=== PATIENT | male | born 1990 | race Two or more races ===

== ENCOUNTER 2017-02-09 03:55 | Emergency (ER) | payer OTHER ==
[~2017-02-09] VITALS: Ht 165.1 cm; Wt 63.5 kg
[2017-02-09] MEDS ORDERED: diphenhydrAMINE HCL 50 MG/ML VIAL IV ONE (04:00)
[2017-02-09] MEDS ORDERED: HALOPERIDOL LACTATE INJ 5 MG/ML VIAL ONE (04:00)
[2017-02-09] MEDS ORDERED: LORAZEPAM INJ 2 MG/ML VIAL ONE (04:00)
[2017-02-09] MEDS ORDERED: IV NS 0.9% 1,000 ML BAG IV ONE (04:00)
[2017-02-09] MEDS ORDERED: HALOPERIDOL LACTATE INJ 5 MG/ML VIAL IV ONE (04:00)
[2017-02-09] MEDS ORDERED: LORAZEPAM INJ 2 MG/ML VIAL IVP ONE (04:00)
[2017-02-09] MEDS ORDERED: diphenhydrAMINE HCL 50 MG/ML VIAL ONE (04:00)
[2017-02-09] MEDS ORDERED: IV NS 0.9% 1,000 ML ONE (04:01)
[2017-02-09] MEDS ORDERED: IV SET PRIMARY 1 EA INFUS.SET MC ONE (04:01)
[2017-02-09 04:24] LABS: BASOPHILS % (AUTO) 0.2 % (0.0-2.0); DIFF TOTAL % 100 %; EOSINOPHILS % (AUTO) 0.1 % (0.0-6.0); HEMATOCRIT 45 % (39-51); HEMOGLOBIN 14.8 g/dL (13.5-17.5); LYMPHOCYTES # (AUTO) 0.9 /CMM (0.8-4.8); LYMPHOCYTES % (AUTO) 9.9 % (20.0-44.0); MEAN CORPUSCULAR HEMOGLOBIN 29 PG (26.0-33.0); MEAN CORPUSCULAR HGB CONC 33 g/dl (31.0-36.0); MEAN CORPUSCULAR VOLUME 88 fL (80-96); MONOCYTES # (AUTO) 0.5 /CMM (0.1-1.30); MONOCYTES % (AUTO) 5.5 % (2.0-12.0); NEUTROPHILS # (AUTO) 7.8 /CMM (1.8-8.9); NEUTROPHILS % (AUTO) 84.3 % (43.0-81.0); PLATELET COUNT (AUTO) 238 /CMM (150-450); RED BLOOD CELL COUNT(AUTO) 5.09 MIL/uL (4.5-6.0); WHITE BLOOD COUNT (AUTO) 9.2 K/uL (4.3-11.0)
[2017-02-09 04:46] LABS: CALCIUM, SERUM 9.4 mg/dL (8.5-10.1); CREATININE 1.1 mg/dL (0.6-1.3); POTASSIUM 3.8 mmol/L (3.5-5.1)
[2017-02-09 04:51] LABS: ALBUMIN 4.2 g/dL (3.4-5.0); BILIRUBIN,DIRECT 0.1 mg/dL (0.0-0.2); BILIRUBIN,TOTAL 0.6 mg/dL (0.2-1.0); INDIRECT BILIRUBIN 0.5 mg/dL (0.0-1.1); TOTAL PROTEIN, SERUM 7.7 g/dL (6.4-8.2)
[2017-02-09 04:52] LABS: SALICYLATE 0.8 mg/dL (2.8-20.0)
[2017-02-09 08:49] LABS: PHENCYCLIDINE SCREEN,URINE NEGATIVE (NEGATIVE)
[2017-02-09 08:51] LABS: CANNABINOID, URINE POSITIVE (NEGATIVE)
[2017-02-09 10:26] VITALS: BP 112/62
== END 2017-02-09 10:27 ==
LOC: ER 03:58
DX: F19.10 Other psychoactive substance abuse, uncomplicated (principal); S40.211A Abrasion of right shoulder, initial encounter; R45.851 Suicidal ideations
CPT/HCPCS: 36415; 80048; 80076; 80305; 80329; 82550; 85025; 93005; 96361; 96374; 96375; 99285; A4606; G0480 ×2; J1200; J1630; J2060; J7030; Z7610; G6039-TC

== ENCOUNTER 2018-04-24 10:42 | Emergency (ER) | payer OTHER ==
[~2018-04-24] VITALS: Ht 167.6 cm; Wt 74.8 kg
--- NOTE | 2018-04-24 10:50 | NUR ---
PT BIB RA AND [employer] WITH A C/O SI. PT STATED THAT HE TRIED TO "JUMP OFF THE ROOF OF [facility], BUT THAT DID NOT WORK". THEN PT STATED THAT HE TRIED TO RUN INTO TRAFFIC. PT IS AA&O X3. PT IS BEING PUT ON A 5150 BY [employer].
--- NOTE | 2018-04-24 11:02 | NUR ---
TAPPER SUPERVISOR IS AT THE BEDSIDE FOR BLOOD DRAW. URINE SAMPLE OBTAINED AND SENT TO LAB.
[2018-04-24 11:14] LABS: APPEARANCE,URINE Clear (CLEAR); BILIRUBIN,URINE Negative (NEGATIVE); BLOOD, URINE Negative Ery/uL (NEGATIVE); COLOR,URINE Yellow (YELLOW); KETONES,URINE Negative (NEGATIVE); LEUKOCYTE ESTERASE ,URINE Negative (NEGATIVE); NITRITE, URINE Negative (NEGATIVE); PROTEIN,URINE Negative (NEGATIVE); UGLUCOSE Negative (NEGATIVE); UROBILINOGEN,URINE 0.2 EU/dL (0.2)
[2018-04-24 11:14] LABS: BASOPHILS # (AUTO) 0.1 /CMM (0.0-0.2); MONOCYTES # (AUTO) 0.3 /CMM (0.1-1.30); WHITE BLOOD COUNT (AUTO) 5.5 K/uL (4.3-11.0)
[2018-04-24 11:16] LABS: BASOPHILS % (AUTO) 2.3 % (0.0-2.0); EOSINOPHILS % (AUTO) 0.3 % (0.0-6.0); HEMATOCRIT 46 % (39-51); HEMOGLOBIN 15.7 g/dL (13.5-17.5); LYMPHOCYTES % (AUTO) 18.5 % (20.0-44.0); MEAN CORPUSCULAR HGB CONC 35 g/dl (31.0-36.0); MEAN CORPUSCULAR VOLUME 87 fL (80-96); MONOCYTES % (AUTO) 4.6 % (2.0-12.0); NEUTROPHILS # (AUTO) 4.1 /CMM (1.8-8.9); NEUTROPHILS % (AUTO) 74.3 % (43.0-81.0); PLATELET COUNT (AUTO) 342 /CMM (150-450); RDW COEFFICIENT OF VARIATION 13.8 (11.5-15.0); RED BLOOD CELL COUNT(AUTO) 5.22 MIL/uL (4.5-6.0)
[2018-04-24 11:23] LABS: CREATININE 0.9 mg/dL (0.6-1.3); POTASSIUM 4.1 mmol/L (3.5-5.1)
[2018-04-24 11:32] LABS: ALBUMIN 3.9 g/dL (3.4-5.0); BILIRUBIN,DIRECT 0.2 mg/dL (0.0-0.2); BILIRUBIN,TOTAL 1.1 mg/dL (0.2-1.0); TOTAL PROTEIN, SERUM 7.8 g/dL (6.4-8.2)
--- NOTE | 2018-04-24 12:00 | NUR ---
CALLED FOR FOOD TRAY
--- NOTE | 2018-04-24 12:20 | NUR ---
FOOD TRAY ARRIVED AND PT IS TOLERATING PO WELL.
--- NOTE | 2018-04-24 13:08 | NUR ---
PT APPEARS TO BE RESTING COMFORTABLY WITH NO S/S OF PAIN OR DISTRESS.
--- NOTE | 2018-04-24 14:30 | NUR ---
PT APPEARS TO BE RESTING COMFORTABLY WITH NO S/S OF PAIN OR DISTRESS.
--- NOTE | 2018-04-24 16:27 | NUR ---
PT APPEARS TO BE RESTING COMFORTABLY WITH NO S/S OF PAIN OR DISTRESS.
--- NOTE | 2018-04-24 16:56 | NUR ---
CALLED FOR DINNER TRAY FOR PT.
--- NOTE | 2018-04-24 18:53 | NUR ---
PT DENIES SI AT THIS TIME. PT APPEARS TO BE RESTING COMFORTABLY. NO S/S OF PAIN OR DISTRESS.
--- NOTE | 2018-04-24 19:10 | NUR ---
REPORT GIVEN TO LORIE TOM FOR OCTAVIANO.
--- NOTE | 2018-04-24 19:17 | NUR ---
REPORT RECV FROM [facility].
--- NOTE | 2018-04-24 19:19 | NUR ---
Patient is resting comfortably in bed, VSS
--- NOTE | 2018-04-24 23:23 | NUR ---
Jaime molina in ED - 04/25/18 at 0044 by SONA PATIENT IS RESTING IN ER BED, NO DISTRESS NOTED, SKIN WARM AND DRY, RESP EVEN AND UNLABORED. WILL CONTINUE TO MONITOR
--- NOTE | 2018-04-25 00:01 | NUR ---
PATIENT IS RESTING IN ER BED, NO DISTRESS NOTED, SKIN WARM AND DRY, RESP EVEN AND UNLABORED. WILL CONTINUE TO MONITOR
--- NOTE | 2018-04-25 02:16 | NUR ---
PATIENT IS RESTING IN ER BED, NO DISTRESS NOTED, SKIN WARM AND DRY, RESP EVEN AND UNLABORED. WILL CONTINUE TO MONITOR
--- NOTE | 2018-04-25 04:51 | NUR ---
SPOKE WITH DAMIEN, INTAKE FROM [facility], PER DAMIEN THEY WILL NOT ACCEPT THE PATIENT. CALLED AIDE CRUZ LCSW, HE STATES HE WILL CALL BACK DAMIEN. AWAITING CALL BACK FROM ART.
--- NOTE | 2018-04-25 05:25 | NUR ---
SPOKE WITH ART, PER ART "SO HOWARD WILL RE ASSESS THE PACKET IN AT 8 AM" PATIENT IS NOT ON A HOLD, PATIENT IS CALM COAPERATIVE. WILL CONTINUE TO MONITOR.
--- NOTE | 2018-04-25 08:00 | NUR ---
ASLEEP,EASILY AROUSABLE, BREAKFAST OFFERED.
--- NOTE | 2018-04-25 09:30 | NUR ---
AMBULATED TO RESTROOM WITH STEADY GAIT
[2018-04-25 10:30] VITALS: BP 118/75
--- NOTE | 2018-04-25 10:52 | NUR ---
CALLED FOR TRANSPORT TO [facility]. ETA 45-60 MINUTES.
--- NOTE | 2018-04-25 11:07 | NUR ---
REPORT GIVEN TO CEZAR MELO FOR OCTAVIANO
--- NOTE | 2018-04-25 11:43 | NUR ---
AMBULANCE ARRIVED, PT NOT FOUND IN BED.
--- NOTE | 2018-04-25 11:45 | NUR ---
Patient eloped from facility. ER MD notified. Patient was last seen by LORIE Osullivan around 1118 went to the restroom.
== END 2018-04-25 12:05 | disposition left against medical advice (07) ==
LOC: ER 10:44
DX: T51.92XA Toxic effect of unspecified alcohol, intentional self-harm, initial encounter (principal); F32.9 Major depressive disorder, single episode, unspecified; F15.10 Other stimulant abuse, uncomplicated; Y92.89 Other specified places as the place of occurrence of the external cause
CPT/HCPCS: 36415; 80048; 80076; 80305; 80329; 81001; 85025; 99284; A4606; G0480 ×3; Z7610; 81000-TC

== ENCOUNTER 2020-03-26 16:22 | Emergency (ER) | payer OTHER ==
[~2020-03-26] VITALS: Ht 167.6 cm; Wt 79.4 kg
--- NOTE | 2020-03-26 16:34 | NUR ---
PT BIBA RA 88 "Drug Abuse last took meth/fentanyl today" PT IS AAOX2, NOT IN RESPIRATORY DISTRESS, HOOKED TO INTERNATIONAL TRADE ANALYST, KEPT RESTED AND COMFORTABLE, WILL CONTINUE TO MONITOR.
--- NOTE | 2020-03-26 16:45 | NUR ---
SEEN AND EXAMINED BY RUSSELL BAEL
--- NOTE | 2020-03-26 16:50 | NUR ---
IV LINE ESTABLISHED BLOOD DRAWN AND SENT TO LAB.
[2020-03-26 16:55] LABS: BASOPHILS % (AUTO) 0.4 % (0.0-2.0); EOSINOPHILS % (AUTO) 0.2 % (0.0-6.0); HEMATOCRIT 44 % (39-51); HEMOGLOBIN 14.7 g/dL (13.5-17.5); LYMPHOCYTES # (AUTO) 1.1 /CMM (0.8-4.8); LYMPHOCYTES % (AUTO) 13.3 % (20.0-44.0); MEAN CORPUSCULAR HGB CONC 33 g/dl (31.0-36.0); MEAN CORPUSCULAR VOLUME 89 fL (80-96); MONOCYTES # (AUTO) 0.3 /CMM (0.1-1.30); MONOCYTES % (AUTO) 3.6 % (2.0-12.0); NEUTROPHILS # (AUTO) 6.7 /CMM (1.8-8.9); NEUTROPHILS % (AUTO) 82.5 % (43.0-81.0); PLATELET COUNT (AUTO) 206 /CMM (150-450); RED BLOOD CELL COUNT(AUTO) 4.96 MIL/uL (4.5-6.0); WHITE BLOOD COUNT (AUTO) 8.2 K/uL (4.3-11.0)
--- NOTE | 2020-03-26 16:58 | NUR ---
URINAL GIVEN, BUT UANBLE TO PROVIDE URINE SPECIMEN THIS TIME.
[2020-03-26] MEDS ORDERED: IV NS 0.9% 1,000 ML BAG IV ONE (17:00)
[2020-03-26] MEDS ORDERED: ONDANSETRON HCL/PF 4 MG/2 ML VIAL IVP ONE (17:00)
[2020-03-26 17:04] LABS: CALCIUM, SERUM 8.5 mg/dL (8.5-10.1)
[2020-03-26 17:11] LABS: ALBUMIN 3.9 g/dL (3.4-5.0); BILIRUBIN,DIRECT 0.1 mg/dL (0.0-0.2); BILIRUBIN,TOTAL 0.3 mg/dL (0.2-1.0); TOTAL PROTEIN, SERUM 7.4 g/dL (6.4-8.2)
[2020-03-26 17:17] LABS: SALICYLATE 2.3 mg/dL (2.8-20.0)
[2020-03-26] MEDS ORDERED: ONDANSETRON HCL/PF 4 MG/2 ML VIAL ONE (17:45)
--- NOTE | 2020-03-26 17:50 | NUR ---
URINE SPECIMEN COLLECTED AND SENT TO LAB.
[2020-03-26 18:43] LABS: APPEARANCE,URINE Clear (CLEAR); BILIRUBIN,URINE Negative (NEGATIVE); BLOOD, URINE Moderate Ery/uL (NEGATIVE); COLOR,URINE Yellow (YELLOW); KETONES,URINE Negative (NEGATIVE); LEUKOCYTE ESTERASE ,URINE Negative (NEGATIVE); NITRITE, URINE Negative (NEGATIVE); PH,URINE 5.5 (5.0-8.0); PROTEIN,URINE Negative (NEGATIVE); UGLUCOSE Negative (NEGATIVE); UROBILINOGEN,URINE 0.2 EU/dL (0.2)
[2020-03-26 18:58] LABS: BACTERIA,URINE Few /HPF (None Seen); MUCUS,URINE Few /LPF (None Seen); SQUAMOUS EPITHELIAL CELL,UR Few /HPF (None Seen); URINE AMORPHOUS URATE Few /HPF (None Seen); WBC,URINE 0-2 /HPF (0-3)
--- NOTE | 2020-03-26 20:40 | NUR ---
PT AWAKE, AAOX4. AMBULATORY WITH STEADY GAIT. PER DR. ECHEVARRIA PT MEDICALLY CLEARED FOR DISCHARGE. Patient discharged to home in stable condition. Written and verbal after care instructions given. Patient verbalizes understanding of instruction.IV removed. Catheter intact and site benign. Pressure and 4x4 applied to site. No bleeding noted.
[2020-03-26 20:49] VITALS: BP 119/75
== END 2020-03-26 20:49 | disposition home or self-care (01) ==
LOC: ER 16:25
DX: F19.10 Other psychoactive substance abuse, uncomplicated (principal); F10.129 Alcohol abuse with intoxication, unspecified; R41.82 Altered mental status, unspecified; Y90.8 Blood alcohol level of 240 mg/100 ml or more
CPT/HCPCS: 36415; 80048; 80076; 80305; 80307; 80329; 81001; 85025; 96361; 96374; 99285; G0480; J2405; J7030; 81000-TC

== ENCOUNTER 2020-09-11 01:29 | Emergency (ER) | payer OTHER ==
[~2020-09-11] VITALS: Ht 170.2 cm; Wt 83.9 kg
--- NOTE | 2020-09-11 01:33 | NUR ---
pamela 79 and [employer] from [facility] for behavioral problems. pt states wants to +etoh. pt to bed 15, pt cooperative with staff. placed on monitor. vss. nad noted. pending er provider tj
--- NOTE | 2020-09-11 02:00 | NUR ---
pt placed on 5150 hold per [employer].
--- NOTE | 2020-09-11 02:00 | NUR ---
+ETOH 276
[2020-09-11 03:02] LABS: CALCIUM, SERUM 8.6 mg/dL (8.5-10.1); CARBON DIOXIDE 25 mmol/L (21-32); CHLORIDE 109 mmol/L (98-107); CREATININE 1.1 mg/dL (0.6-1.3); GLUCOSE 101 mg/dL (74-106); POTASSIUM 3.6 mmol/L (3.5-5.1); SODIUM SERUM 145 mmol/L (136-145); UREA NITROGEN, BLOOD 6 mg/dL (7-18)
[2020-09-11 03:09] LABS: ALANINE AMINOTRANSFERASE 22 U/L (12-78); ALBUMIN 3.9 g/dL (3.4-5.0); ALCOHOL, BLOOD 276 mg/dL (0-0); ALKALINE PHOSPHATASE 88 U/L (46-116); ASPARTATE AMINOTRANSFERASE 17 U/L (15-37); BILIRUBIN,DIRECT 0.1 mg/dL (0.0-0.2); BILIRUBIN,TOTAL 0.3 mg/dL (0.2-1.0); TOTAL PROTEIN, SERUM 6.9 g/dL (6.4-8.2)
[2020-09-11 03:10] LABS: ACETAMINOPHEN < 2 ug/ml (10-30)
[2020-09-11 03:22] LABS: BASOPHILS % (AUTO) 0.5 % (0.0-2.0); EOSINOPHILS % (AUTO) 0.3 % (0.0-6.0); HEMATOCRIT 44 % (39-51); HEMOGLOBIN 14.7 g/dL (13.5-17.5); LYMPHOCYTES # (AUTO) 1.4 /CMM (0.8-4.8); LYMPHOCYTES % (AUTO) 27.3 % (20.0-44.0); MEAN CORPUSCULAR HGB CONC 34 g/dl (31.0-36.0); MEAN CORPUSCULAR VOLUME 89 fL (80-96); MONOCYTES # (AUTO) 0.3 /CMM (0.1-1.30); MONOCYTES % (AUTO) 6.2 % (2.0-12.0); NEUTROPHILS # (AUTO) 3.3 /CMM (1.8-8.9); NEUTROPHILS % (AUTO) 65.7 % (43.0-81.0); PLATELET COUNT (AUTO) 232 /CMM (150-450); RED BLOOD CELL COUNT(AUTO) 4.92 MIL/uL (4.5-6.0); WHITE BLOOD COUNT (AUTO) 5.1 K/uL (4.3-11.0)
--- NOTE | 2020-09-11 03:55 | NUR ---
URINE COLLECTED AND SENT TO LAB
[2020-09-11 04:10] LABS: APPEARANCE,URINE CLEAR (CLEAR); BILIRUBIN,URINE NEGATIVE (NEGATIVE); BLOOD, URINE NEGATIVE Ery/uL (NEGATIVE); COLOR,URINE YELLOW (YELLOW); KETONES,URINE NEGATIVE (NEGATIVE); LEUKOCYTE ESTERASE ,URINE NEGATIVE (NEGATIVE); NITRITE, URINE NEGATIVE (NEGATIVE); PROTEIN,URINE NEGATIVE (NEGATIVE); UGLUCOSE NEGATIVE (NEGATIVE); UROBILINOGEN,URINE 0.2 EU/dL (0.2)
--- NOTE | 2020-09-11 04:30 | NUR ---
pt moved to bed 12, pt keeps getting up and removing restraints. dr. urbina aware.
[2020-09-11] MEDS ORDERED: OLANZAPINE 10 MG VIAL IM ONE ×2 (05:30→05:50)
--- NOTE | 2020-09-11 05:30 | NUR ---
per dr. urbina; zyprexa 10 im
--- NOTE | 2020-09-11 06:43 | NUR ---
Patient is resting comfortably in bed with eyes closed. Easily aroused. VSS
--- NOTE | 2020-09-11 07:09 | NUR ---
REPORT GIVEN TO TYREL MELO FOR OCTAVIANO
--- NOTE | 2020-09-11 08:01 | NUR ---
PATIENT RESTING, NO DISTRESS NOTED. NEEDS ATTENDED.
--- NOTE | 2020-09-11 08:46 | NUR ---
ORDERED BREAKFAST FOOD TRAY.
--- NOTE | 2020-09-11 09:14 | NUR ---
CALLED ART CRISIS FOR EVAL.
--- NOTE | 2020-09-11 11:15 | NUR ---
ART TAXI TRUCK DRIVER CAME AND EVALUATED THE PATIENT AND BROKE THE HOLD. PATIENT DENIES SI/HI, A/OX4, CALM AND COOPERATIVE, AMBULATORY WITH STEADY GAIT, ATE BREAKFAST. ALL BELONGINGS GIVEN BACK TO THE PATIENT. PATIENT DENIES BEING HOMELESS, HE STS THAT HE LIVES WITH HIS MOM AND PROVIDED AN ADDRESS. [id number] [facility] [id number].
[2020-09-11 11:26] VITALS: BP 122/61
--- NOTE | 2020-09-11 11:26 | NUR ---
Patient discharged to home in stable condition. Written and verbal after care instructions given. Patient verbalizes understanding of instruction.
--- NOTE | 2020-09-11 14:04 | NUR ---
This SW met the patient at bedside. Patient is a 29-year-old male. Patient was asleep and woke up when this SW called his name. Patient remained in bed, appeared drowsy, however when this SW asked the patient to sit up and look directly at this SW patient followed SW request. Patient alert and oriented x3. Patient confirmed demographics on face sheet including date of , social security number, and current address. Per MD note, patient was brought in by [employer] as police officers reported that the patient was suicidal. Per patient, he lives with his mom in an apartment. Per patient, he was at a rehab facility in [place] but could not remember the name. Per patient, he was only in this rehab facility for 3 days. Per patient, he left on 09/10 which put him on a violation of his parole. Per patient, he has been using meth for some time I cant remember and patient also reports drinking alcohol. Patient reports drinking alcohol primarily beer anything from 6 to 12 cans of beer, sometime liquor but mostly beer. Patient denies auditory and visual hallucinations. Patient denies suicidal and homicidal ideation. Patient to be evaluated by club manager as patient is on a 5150 hold. cable mock up assembler has been called by audit techkike Irene.
== END 2020-09-11 11:27 | disposition home or self-care (01) ==
LOC: ER 01:30
DX: F10.129 Alcohol abuse with intoxication, unspecified (principal); R41.82 Altered mental status, unspecified; Y90.8 Blood alcohol level of 240 mg/100 ml or more
CPT/HCPCS: 36415; 80048; 80076; 80299; 80307 ×2; 80320; 81001; 85025; 96372; 99285; J3490; 81000-TC; G0480

== ENCOUNTER → 2021-12-29 | Emergency (ER) | payer OTHER ==
[~2021-12-29] VITALS: Ht 167.6 cm; Wt 70.8 kg
[~2021-12-29] MED LIST: FAMOTIDINE/PF INJ 20 MG/2 ML VIAL IV ONE; IV NS 0.9% 1,000 ML BAG IV ONE; KETOROLAC TROMETHAMINE 15 MG/ML VIAL ONE; KETOROLAC TROMETHAMINE INJ 30 MG/ML VIAL IV ONE; NALO4SPR BNOSTRILS; ONDA4TAB5 PO; ONDANSETRON HCL/PF 4 MG/2 ML VIAL IVP ONE; ONDANSETRON HCL/PF 4 MG/2 ML VIAL ONE
--- NOTE | 2021-12-29 18:09 | NUR ---
AUNT MEME [phone]. SISTER [phone]
[2021-12-29 18:58] LABS: CALCIUM, SERUM 8.8 mg/dL (8.5-10.1); CREATININE 0.9 mg/dL (0.6-1.3); POTASSIUM 3.5 mmol/L (3.5-5.1)
[2021-12-29 19:04] LABS: ALBUMIN 3.7 g/dL (3.4-5.0); BILIRUBIN,DIRECT 0.3 mg/dL (0.0-0.2); BILIRUBIN,TOTAL 0.9 mg/dL (0.2-1.0); TOTAL PROTEIN, SERUM 7.5 g/dL (6.4-8.2)
[2021-12-29 19:55] LABS: BILIRUBIN,URINE NEGATIVE (NEGATIVE); COLOR,URINE YELLOW (YELLOW); LEUKOCYTE ESTERASE ,URINE NEGATIVE (NEGATIVE); NITRITE, URINE NEGATIVE (NEGATIVE); PH,URINE 5.5 (5.0-8.0); PROTEIN,URINE NEGATIVE (NEGATIVE); UGLUCOSE NEGATIVE (NEGATIVE); UROBILINOGEN,URINE 0.2 EU/dL (0.2)
[2021-12-29 20:35] LABS: EOSINOPHILS % (AUTO) 0.9 % (0.0-6.0); HEMATOCRIT 46 % (39-51); HEMOGLOBIN 15.4 g/dL (13.5-17.5); LYMPHOCYTES # (AUTO) 1.2 K/uL (0.8-4.8); LYMPHOCYTES % (AUTO) 36.2 % (20.0-44.0); MEAN CORPUSCULAR HGB CONC 34 g/dl (31.0-36.0); MEAN CORPUSCULAR VOLUME 89 fL (80-96); MONOCYTES # (AUTO) 0.4 K/uL (0.1-1.30); MONOCYTES % (AUTO) 12.2 % (2.0-12.0); NEUTROPHILS # (AUTO) 1.7 K/uL (1.8-8.9); NEUTROPHILS % (AUTO) 49.7 % (43.0-81.0); PLATELET COUNT (AUTO) 380 K/uL (150-450); RED BLOOD CELL COUNT(AUTO) 5.09 MIL/uL (4.5-6.0); WHITE BLOOD COUNT (AUTO) 3.4 K/uL (4.3-11.0)
--- NOTE | 2021-12-29 21:59 | NUR ---
Patient discharged to home in stable condition. Written and verbal after care instructions given. Patient verbalizes understanding of instruction.IV removed. Catheter intact and site benign. Pressure and 4x4 applied to site. No bleeding noted.
[2021-12-29 22:00] VITALS: BP 128/82
== END | disposition home or self-care (01) ==
LOC: ER 17:54
DX: S20.211A Contusion of right front wall of thorax, initial encounter (principal); S30.0XXA Contusion of lower back and pelvis, initial encounter; R10.13 Epigastric pain; K29.20 Alcoholic gastritis without bleeding; F10.10 Alcohol abuse, uncomplicated; R11.2 Nausea with vomiting, unspecified; F19.10 Other psychoactive substance abuse, uncomplicated; E86.0 Dehydration; Z59.00 Homelessness unspecified; R74.01 Elevation of levels of liver transaminase levels; D72.819 Decreased white blood cell count, unspecified; Z86.19 Personal history of other infectious and parasitic diseases; X58.XXXA Exposure to other specified factors, initial encounter; Y93.89 Activity, other specified; Y92.89 Other specified places as the place of occurrence of the external cause; Y99.8 Other external cause status; Y90.9 Presence of alcohol in blood, level not specified
CPT/HCPCS: 36415; 71100; 72110; 80048; 80076; 81003; 83690; 85025; 96361; 96374; 96375; 99284; J1885; J2405; J3490; J7030

== ENCOUNTER 2022-02-18 16:53 | Emergency (ER) | payer OTHER ==
[~2022-02-18] VITALS: Ht 170.2 cm; Wt 65.8 kg
[~2022-02-18 16:53] MED LIST changes: -FAMOTIDINE/PF INJ 20 MG/2 ML VIAL IV ONE; -IV NS 0.9% 1,000 ML BAG IV ONE; -KETOROLAC TROMETHAMINE 15 MG/ML VIAL ONE; -KETOROLAC TROMETHAMINE INJ 30 MG/ML VIAL IV ONE; -ONDANSETRON HCL/PF 4 MG/2 ML VIAL IVP ONE; -ONDANSETRON HCL/PF 4 MG/2 ML VIAL ONE
--- NOTE | 2022-02-18 19:00 | NUR ---
@1700 BIBRA 889, SI "ARRESTED FOR DUI, ON THE WAY TO PD, WAS FREAKING OUT AND SAY WILL KILL SELF" PT AWAKE A/OX3. TOLERATING R/A WELL WITH NO SOB
--- NOTE | 2022-02-18 19:47 | NUR ---
PER LAB, THEY RECIEVED BLOOD AND COVID ANTIGEN
[2022-02-18 19:53] LABS: BASOPHILS % (AUTO) 0.3 % (0.0-2.0); HEMATOCRIT 46 % (39-51); HEMOGLOBIN 15.3 g/dL (13.5-17.5); LYMPHOCYTES # (AUTO) 1.2 K/uL (0.8-4.8); LYMPHOCYTES % (AUTO) 13.5 % (20.0-44.0); MEAN CORPUSCULAR HGB CONC 33 g/dl (31.0-36.0); MEAN CORPUSCULAR VOLUME 89 fL (80-96); MONOCYTES # (AUTO) 0.4 K/uL (0.1-1.30); MONOCYTES % (AUTO) 4.5 % (2.0-12.0); NEUTROPHILS # (AUTO) 7.2 K/uL (1.8-8.9); NEUTROPHILS % (AUTO) 81.7 % (43.0-81.0); PLATELET COUNT (AUTO) 321 K/uL (150-450); RED BLOOD CELL COUNT(AUTO) 5.16 MIL/uL (4.5-6.0); WHITE BLOOD COUNT (AUTO) 8.8 K/uL (4.3-11.0)
--- NOTE | 2022-02-18 19:57 | NUR ---
PT RETURNED TO ER BED [address]
--- NOTE | 2022-02-18 20:07 | NUR ---
URINE COLLECTED AND SENT TO LAB
[2022-02-18 20:10] LABS: CALCIUM, SERUM 9.2 mg/dL (8.5-10.1); CARBON DIOXIDE 27 mmol/L (21-32); CHLORIDE 108 mmol/L (98-107); GLUCOSE 114 mg/dL (74-106); POTASSIUM 3.4 mmol/L (3.5-5.1); SODIUM SERUM 145 mmol/L (136-145); UREA NITROGEN, BLOOD 9 mg/dL (7-18)
[2022-02-18 20:16] LABS: ALANINE AMINOTRANSFERASE 34 U/L (12-78); ALCOHOL, BLOOD 204 mg/dL (0-0); ALKALINE PHOSPHATASE 113 U/L (46-116); ASPARTATE AMINOTRANSFERASE 27 U/L (15-37); BILIRUBIN,DIRECT 0.1 mg/dL (0.0-0.2); BILIRUBIN,TOTAL 0.7 mg/dL (0.2-1.0); TOTAL PROTEIN, SERUM 7.7 g/dL (6.4-8.2)
[2022-02-18 20:28] LABS: ACETAMINOPHEN < 0 ug/ml (10-30)
[2022-02-18 20:32] LABS: BILIRUBIN,URINE NEGATIVE (NEGATIVE); COLOR,URINE YELLOW (YELLOW); LEUKOCYTE ESTERASE ,URINE NEGATIVE (NEGATIVE); NITRITE, URINE NEGATIVE (NEGATIVE); PROTEIN,URINE 30 mg/dl (NEGATIVE); UGLUCOSE NEGATIVE (NEGATIVE); UROBILINOGEN,URINE 0.2 EU/dL (0.2)
[2022-02-18 20:38] LABS: BACTERIA,URINE RARE /HPF (None Seen); FINE GRANULAR CASTS,URINE Few /LPF (None Seen); HYALINE CASTS, URINE Few /LPF (None Seen); MUCUS,URINE Many /LPF (None Seen); RBC,URINE 0-2 /HPF (0-2); WBC,URINE 0-2 /HPF (0-3)
--- NOTE | 2022-02-19 02:23 | NUR ---
CALLED THELMA CARRENO
[2022-02-19] MEDS ORDERED: ONDANSETRON 4 MG TAB.RAPDIS ONE (03:29)
[2022-02-19] MEDS ORDERED: CHLORDIAZEPOXIDE HCL 25 MG CAPSULE ONE (03:29)
[2022-02-19] MEDS ORDERED: CHLORDIAZEPOXIDE HCL 25 MG CAPSULE PO ONE (03:30)
[2022-02-19] MEDS ORDERED: ONDANSETRON 4 MG TAB.RAPDIS SL ONE (03:30)
--- NOTE | 2022-02-19 05:34 | NUR ---
THELMA CARRENO AT BED SIDE SPEAKING TO THE PATIENT
[2022-02-19] MEDS ORDERED: CHLO25CA22 PO (05:48)
--- NOTE | 2022-02-19 06:02 | NUR ---
PATIENT IS STABLE FOR D/C. Patient discharged to home in stable condition. Written and verbal after care instructions given. Patient verbalizes understanding of instruction.
[2022-02-19 06:08] VITALS: BP 111/68
== END 2022-02-19 06:09 | disposition home or self-care (01) ==
LOC: ER 16:55
DX: R45.851 Suicidal ideations (principal); S16.1XXA Strain of muscle, fascia and tendon at neck level, initial encounter; S09.90XA Unspecified injury of head, initial encounter; V49.40XA Driver injured in collision with unspecified motor vehicles in traffic accident, initial encounter; W22.11XA Striking against or struck by driver side automobile airbag, initial encounter; Y92.414 Local residential or business street as the place of occurrence of the external cause; Z86.19 Personal history of other infectious and parasitic diseases; F10.129 Alcohol abuse with intoxication, unspecified; Y90.8 Blood alcohol level of 240 mg/100 ml or more; Z20.822 Contact with and (suspected) exposure to COVID-19
CPT/HCPCS: 36415 ×2; 70450; 71045; 72125; 80048; 80076; 80143; 80307; 80320 ×2; 81001; 85025; 87426; 99285; C9803; Q0162; G0480